=== PATIENT | female | born 1940 | race Caucasian/White ===

== ENCOUNTER → 2017-12-17 11:33 | Outpatient (CLI) | payer OTHER, SELFPAY ==
--- NOTE | 2017-12-17 | DI.MRI.S_ITS ---
PROCEDURE: MR KNEE LT WO CON INDICATIONS: PRIMARY OSTEOARTHRITIS OF LEFT KNEE TECHNIQUE: Noncontrast sagittal PD fast spin echo and T2 fast spin echo with fat saturation, sagittal 3-D FLASH with fat saturation; coronal T1 spin echo and PD fast spin echo with fat saturation, and axial PD fast spin echo with fat saturation through the knee. COMPARISON: [facility] Vernon Orland, CR, XR KNEE ARTHRITIC SERIES BI, 08/31/2017, 11:08. FINDINGS: Image quality: Excellent. Menisci: Circumferential macerated medial meniscal tear (versus postsurgical appearance) with very little meniscal substance visualized, in particular the anterior and posterior horn. There is complete extrusion of the body. Lateral meniscal body tear is seen extending to the free margin and undersurface image 18 series 11. Cruciate ligaments: The anterior cruciate ligament is not well visualized. Suboptimal evaluation due to advanced arthritic changes and posterior cruciate ligament appears intact. There are numerous presumed periligamentous ganglion cyst adjacent to the posterior cruciate ligament, and posterior joint capsule. Medial structures: The medial collateral ligament appears intact although marked medial bowing due to meniscal pathology described above. The posterior oblique ligament, semimembranosus tendon insertions, oblique popliteal ligament, and meniscocapsular junction appear intact. Visualized portions of the pes anserinus tendons appear normal. No abnormal bursal fluid. Lateral structures: The lateral collateral ligament, long and short heads of the biceps femoris tendon appear intact. The popliteus tendon appears normal; the popliteofibular ligament appears intact. The posterosuperior and anteroinferior popliteomeniscal fascicles appear intact. The arcuate and fabellofibular ligaments appear intact, on either side of the lateral inferior geniculate artery. Iliotibial band appears normal. Anterior structures: The quadriceps and patellar tendons appear intact. Prepatellar and superficial infrapatellar subcutaneous edema Patellar alignment is normal. No femoral trochlear dysplasia or ventral trochlear prominence. No edema in the infrapatellar fat pad. Bones and cartilage: No bone marrow contusions or fractures. There is advanced osteoarthritis with full thickness femoral and tibial articular cartilage loss within the medial compartment. Within the lateral compartment there is diffuse partial-thickness femoral and tibial articular cartilage loss. Within the patellofemoral compartment, there is is partial-thickness loss and surface fraying of the patellar and femoral trochlear cartilage Joint space: Small joint effusion. Trace Sandhu's cyst noted IMPRESSION: Circumferential macerated ill-defined tear of the medial meniscus with complete extrusion of the body(versus postoperative change, please correlate with any surgical history). Complex tear of the lateral meniscus involving the body Rupture of the anterior cruciate ligament. This finding is technically age-indeterminate. Please correlate with clinical exam findings as this is not well seen due to advanced arthritic change. Small joint effusion. Trace Sandhu's cyst. Numerous presumed ganglion cysts adjacent to the posterior joint capsule, the origins of the medial and lateral gastrocnemius and PCL. Advanced osteoarthritis with full-thickness articular cartilage loss within the medial compartment. Dictated by: Florentin Osorio M.D. on 12/17/2017 at 13:49 Approved by: Florentin Osorio M.D. on 12/17/2017 at 14:03
== END ==
PROVIDERS: PCP Nurse Practitioner Primary Care; Visit Provider Orthopaedic Surgery
DX: M17.12 Unilateral primary osteoarthritis, left knee (principal); S83.272A Complex tear of lateral meniscus, current injury, left knee, initial encounter; S83.242A Other tear of medial meniscus, current injury, left knee, initial encounter; S83.512A Sprain of anterior cruciate ligament of left knee, initial encounter; M25.462 Effusion, left knee
CPT/HCPCS: 73721

== ENCOUNTER 2018-02-02 06:00 | Inpatient (IN) | payer MEDICARE, OTHER, SELFPAY ==
[2018-01-20 09:38] VITALS: BMI 30.9
[2018-02-02] VITALS (13 sets, daily range): BP systolic 93–136; BP diastolic 54–78; PULSE 58–81; RESP 14–20; TEMP 36.1–37; O2SAT 91–98; BMI 30.9
[2018-02-02] MEDS: LACTATED RINGERS 1,000 ML 42 ML IV ×2 (07:00→10:30)
[2018-02-02] MEDS: VANCOMYCIN 1,000 MG/200 ML FROZ.PIGGY 200 MG IV (07:01)
[2018-02-02] MEDS: ACETAMINOPHEN 325 MG TABLET 975 MG PO ×3 (07:01→20:46)
[2018-02-02] MEDS: CELECOXIB 200 MG CAPSULE PO (07:01)
[2018-02-02] MEDS: PREGABALIN 75 MG CAPSULE PO (07:01)
--- NOTE | 2018-02-02 08:00 | DI.RAD.S_ITS ---
PROCEDURE: XR KNEE LT 1TO2V INDICATIONS: post op TECHNIQUE: 2 view(s) of the knee acquired. COMPARISON: None. FINDINGS: Bones: Patient is status post knee joint arthroplasty. Hardware components are in expected positions. Visualized bony structures are intact. Soft tissues: Overlying postoperative changes are noted. IMPRESSION: Normal alignment after left total knee arthroplasty with a surgical drain overlying the operative bed. Dictated by: Boogie Ledbetter M.D. on 02/02/2018 at 11:17 Approved by: Boogie Ledbetter M.D. on 02/02/2018 at 11:18
--- NOTE | 2018-02-02 08:00 | PM.PREOP ---
Pre-operative Note Interval Note Pre-op Check: Yes History & Physical Reviewed by Physician and Yes Exam Performed Changes: No
--- NOTE | 2018-02-02 08:01 | PM.OP.1 ---
Operative Date/Time/Diagnoses Date of procedure: 02/02/18 Time of procedure: 10:01 Pre-op diagnosis: left knee OA Post-op diagnosis: same Procedure & Clinicians Procedure: left total knee arthroplasty Same procedure as scheduled: Yes Indications: The patient has had progressively worsening left knee pain with radiographic changes consistent with arthritis. Non-operative management has failed and the patient has requested total knee replacement. The risks, benefits and alternatives to surgery were discussed with the patient prior to proceeding. Risks discussed included, but were not limited to, failure to relieve pain, stiffness, infection, nerve damage, deep venous thrombosis, pulmonary embolism, stroke, coma, heart attack, permanent paralysis and , as well as the potential need for eventual revision of the prosthetic. Surgeon: Jill Sheikh Farm Equipment Mechanic Apprentice: Chelo Tatum Anesthesia Type: Spinal Operative Notes Findings: Severe left knee osteoarthritis Closure Type: primary Specimen(s): none sent Implants & Drains: Journey BCS 2 6 femur, 5 tibia, poly, patella Applied: implant(s) Estimated Blood Loss (mL): 250 Blood products transfused: none Tourniquet time (min): 110 Procedure in detail: The patient was seen in the pre-operative area, where the patient identified the left knee as the operative site and this was marked with my initials. The patient received pre-operative antibiotics, and was taken to the operating room and placed on the operative table in the supine position. After satisfactory anesthesia, a time study technologist out was performed. The left leg was encircled with a tourniquet about the proximal thigh, and the leg was prepared from the toes to the tourniquet with ChloroPrep in the usual fashion and draped through sterile drapes. The leg was elevated and exsanguinated with Eschmark bandage and the tourniquet inflated to [250] mmHg pressure. The knee was approached through an approximately 18 cm incision centered over the patella and carried into the knee through a medial parapatellar arthrotomy. A portion of the medial and lateral meniscus was resected. Soft tissue was carefully mobilized around the patella the patella was measured with a caliper. Bone was resected from the patella and the patellar height was reconstituted with up an appropriate sized patellar component. A cover was then placed on the patella. A small amount of additional medial and lateral meniscus was resected. The visionare guide fit well to the distal femur. It looked like an appropriate distal femoral cut and the cut was made without difficulty. The rotation was assessed and the appropriate size femoral guide was placed on the distal femur and finishing cuts were made. There was no evidence of notching. The anterior, posterior and chamfer cuts were then made. The posterior osteophytes and soft tissues were then removed. The posterior capsule was injected with part of a mixture of 60 ml 0.25% Marcaine mixed with 20 ml Exparel for post operative pain control. The remainder of this mixture was injected into the capsule and subcutaneous tissues during cement curing. The tibia was prepared and the visionaire guide fit well to the distal tibia. The rotation was assessed. The patient was placed in extension residual medial and lateral meniscus as well as any residual bone was carefully resected. No additional tibia was resected. Hemostasis was achieved especially posteriorly. Additional local was injected into the posterior capsule. The extension gap was assessed and additional releases for gap balancing were performed as necessary. It was checked with the gap correctional nurse. The femoral component was trial was placed and the notch was finished. Trial tibial and femoral components were then placed and the knee placed through a range of motion. Range of motion was [0-125], with good stability throughout the range. The trials were then removed, and the tibia was finished. The bone was prepared with pulsatile lavage, and dried with a sponge. Cement was applied and the final prosthetics placed. Excess cement was removed during and after cement curing. A brief Betadine soak was performed. After confirming there was no extruded cement posteriorly, the final tibial insert was placed. The knee was copiously irrigated and the tourniquet deflated. Hemostasis was obtained with the Bovie. A drain was placed and brought out superolaterally. The capsule was closed with interrupted # 1 poly suture. The subcutaneous layer was closed with barbed sutures, and the skin with a running 3-0 V-Lock suture and Surgical glue. An Aquacel Ag dressing was applied and the patient was taken to recovery having tolerated the procedure well. Complications: none Condition: stable Disposition: Acute Care Plan for aftercare: The patient will be maintained on a standard total knee replacement protocol with weight bearing as tolerated. The patient will receive aspirin and sequential compression devices for DVT prophylaxis. The patient will be discharged home when safe for the home environment.
[2018-02-02] MEDS: CEFAZOLIN 2 GM/100 ML FROZ.PIGGY IV ×2 (08:20→16:58)
--- NOTE | 2018-02-02 08:35 | SUR.OPER ---
Supine on padded OR bed. Pillow under head, arms secured on padded armboards <90 degree abduction. Safety belt across torso. Non-operative leg secured with tape over blanket over lower leg. Operative leg secured in DeMayo/Fredy positioner. Foam padded brace at thigh of operative leg.
[2018-02-02] MEDS: BUPIVACAINE LIPOSOME 266 MG/20 ML VIAL INJ (08:45)
[2018-02-02] MEDS: BUPIVACAINE 0.25% W/ EPI VIAL 60 ML INJ (08:47)
[2018-02-02] MEDS: POVIDONE-IODINE 15 ML, SODIUM CHLORIDE 0.9% 250 ML TOP (08:51)
--- NOTE | 2018-02-02 13:53 | CM.DANOTE ---
Discharge Planning/Care Management DCP: assessment: initiated: Case received this morning and went to room to check in with pt for introduction of self and role. Room empty....pt was still in surgery. Documentation review reveals that pt is a 77 year old female who admitted early this morning for a planned TKA. Surgeon: Dr. Marie Sheikh Payer: [facility] (1) and Medicare A only (2). PCP: Joslyn Falcon. Pt lives with her in [place] and her pre-op plan is identified as home with spouse support. P: DCP team will check in with pt tomorrow to continue to assessment process and assist with any d/c needs that may arise. Dr. Sheikh says that pt will d/c home when stable for the home environment. CM Discharge Assessment Start: 02/02/18 13:28 Freq: Status: Active Protocol: Document 02/02/18 13:29 ITV (Rec: 02/02/18 13:52 [id number]) Discharge Planning Assessment Advance Directives? Yes Advance Directives on File No History Provided By Medical Record Prior Living Arrangements House Household Members spouse Review Status In Process Next Review Type Continued Stay Review Pre-Anesthesia Assessment Start: 01/20/18 09:38 Freq: Status: Active Protocol: Document 01/20/18 09:38 CAB (Rec: 01/20/18 10:40 CAB [id number]) Pre-Anesthesia Assessment Patient Also Known As Garcia (AKA) Patient Information Reviewed Via Phone Assessment Assessment Completed With Patient Consent for Planned Operative Procedure( Yes s) Verified H&P Completed Within 30 Days Yes Lab Results BMP/CMP CBC Urinalysis Other Comment A1c. Labs/EKG [facility] to [facility] records to be scanned to chart Primary Care Provider Joslyn Falcon Seen Specialist in Last 12 Months Yes Specialist Seen Fresh Work Inspector Opthamologist/Senior Analysis Specialist Orthopedist Primary Language Latvian Horticultural Specialty Grower Required No Height 162.56 cm Weight 81.647 kg Body Mass Index (BMI) 30.9 Hearing Ability Normal Visual Assist Glasses Dentition Type Teeth, Natural Present Barriers to Learning None Hx Anesthesia Reactions No Hx Family Anesthesia Reaction No Hx Malignant Hyperthermia No Hx Blood Transfusions No Anesthesia Review Requested No Algebra Tutor No alcohol intake current alcohol intake frequency 0-2 drinks per day Smoking Status Former smoker how long ago did patient quit smoking Quit in college, early 60's Substance Use Type other Comment CBD oil Pain Present Pain Reported Musculoskeletal Symptoms Abnormal Gait Difficulty Walking Joint Pain Muscle Cramps History of Falling (Recent or History of No ) Patient is completely paralyzed or No completely immobile Mental Status Oriented to own ability Comment Walking poles with extended walks Is patient on oxygen? No Does patient have MORGAN/SOB No Hx Sleep Apnea No Currently Taking a Beta Joanna No Can You Climb a Flight of Stairs Without No SOB Hx Chest Pain No Hx SOB Yes: With prolonged extertion Hx Syncope or Dizziness Yes: One episode approx 1-2 months ago, resolved Anti-Coagulant Therapy No Has a Game Agent No Cardiac Testing No Hx Pacemaker/ICD No Pacemaker Rep Required? No Cardiac Clearance Received Not Applicable Diet Type At Home Regular dysphagia No Bladder Pattern Nocturia Urinary Catheter Present No Hx Urinary Self Catheterization No Diabetes No HgbA1C 5.4 Date 01/11/18 Patient No Lactating No Hx Drug Resistant Organism No Presence of External or Internal Medical No Devices Have you traveled outside the [facility] in the last 30 days? Marital Status Lives With spouse Prior Living Arrangements House Number of Floors (Floors) Two Floors Number of Stairs To Enter/Railing? 3 stairs, no railing Support System Child/Children Spouse Does the Patient Have Assistance After Yes Surgery Patient Discharge Plan Description Return Home Comment Pt has not been advised on length of stay per surgeon's office Feels Safe in Current Environment Yes Been Physically Hurt or Threatened By a No Person in Current Environment Do you have thoughts of harming yourself None or others? Are you currently considering suicide? No Do you have a plan to hurt yourself or No Plan others? Do You Have Any Spiritual Beliefs That No May Affect Your HC Choices? Do You Have Any Cultural Practices That No May Affect Your HC Choices? Spiritual Referral None Who Can We Speak to About Patient's Care Family, friends Identifying Code for Release of Patient Declines to issue Information Health Care Proxy/Next of Kin Julianna () Health Care Proxy Emergency Contact Name Julianna () Emergency Contact Advance Directives? Yes Advance Directives on File No Requested Patient Bring Advanced Yes Directives DOS Power of Garbage Depot Worker Yes Power of Garbage Depot Worker Name Julianna () Power of Garbage Depot Worker PAC Instructions Do not shave/clip surgical site Durable medical equipment Medications to take/avoid Nasal antibiotic No ETOH/petroleum product on skin DOS NPO Post-op transportation Pre-surgical wash Sturdy shoes/comfortable clothes Do not bring valuables and remove jewelry PAC Comment Right breast cancer - no BP, IVs
--- NOTE | 2018-02-02 14:30 | PT.IPTN ---
Addendum entered and electronically signed by Radha Hilton, PT 02/02/18 15:48: I certify I directly supervised and guided this session. R Neli Hilton DPT Original Note: Current Diagnoses Unilateral primary osteoarthritis, left knee (02/02/18) Surgery Performed Operation Date: 02/02/18 07:45 Actual Procedures p Total Knee Arthroplasty(Left) - Jill Sheikh MD Physical Therapy Treatment Note M2 PT-IP Current Condition Start: 02/02/18 15:12 Freq: NEEDED Status: Active Protocol: Document 02/02/18 14:30 (Rec: 02/02/18 15:42 [id number]) Physical Therapy Current Condition Current Condition Evaluation Date 02/02/18 Treatment Diagnosis L TKA; difficulty walking Onset Date 02/02/18 Weight Bearing Status Weight Bearing Status Weight Bear as Tolerated M3 PT-IP Subjective Start: 02/02/18 15:12 Freq: NEEDED Status: Active Protocol: Document 02/02/18 14:30 (Rec: 02/02/18 15:42 [id number]) Subjective Physical Therapy Visit Type Type Initial Evaluation Visit Start Time 14:30 Visit Stop Time 15:12 Total Visit Minutes 42 Number of STOPPER MAKER Visits 0 Physical Therapy Visit Comments Patient Comments Pt agreeable to mobilize with PT. Her is present for session. Patient Goals Plans to go home at d/c with Therapy Pain Assessment Pain When Pain Assessed During Mobility Pain Present Pain Present Pain Reported Location Right Knee Scale Used 0/10 at rest. 1/10 with PROM Pain Management Techniques Apply Cold Elevation Modification of Treatment Re-positioning Timing of Activity with Medications M4 PT-IP Mobility and Gait Start: 02/02/18 15:12 Freq: NEEDED Status: Active Protocol: Document 02/02/18 14:30 (Rec: 02/02/18 15:42 [id number]) PT-Bed Mobility Assessment Supine to Sit Supine to Sit Standby Assistance Sit to Supine Sit to Supine Standby Assistance Scooting Scooting to Edge of Bed Standby Assistance PT-Transfer Assessment Sit to and From Stand Sit to and from Stand Minimal Assistance 1 Person Assistance Use of Upper Extremities Equipment Transfer Assistive Device Gait Belt Front Wheeled Walker Orthotic/Prosthetic Devices or Brace: No Transfers Transfer Destination Chair Transfer Technique Stand Step Pivot Transfer Ability Level of Assist Minimal Assistance 1 Person Assistance Comments Mobility Comments Resting/supine HOB elevated BP 99/50 HR 70. Pt denies dizziness at rest, agreeable to mobilize. Supine > sit is SBA, pt using BUE heavily. Pt reports dizziness upon sitting upright. Pt instructed in deep breathing, rests 2 mins. in seated. Seated BP 107/60 HR 86. Pt instructed to perform transitional positions more slowly. She states dizziness is subsided and agrees to continue mobilizing. Sit <> stand is min AX1 for steadying and to assist pt upright and min cues. Pt marches in place 2 mins. with CGA and pt relying heavily on BUE support . Pt with difficulty controlling LLE despite max cues to activate quad and (+) for L knee buckling. Post marching, standing BP 108/51 HR 90. Step-pivot transfer minAx1 for steadying pt; pt requiring max cues for fww management and LLE quads activation. Pt denies dizziness post mobilization. PT-Balance Assessment Sitting Balance and Reactions Static Sitting Balance Ability Good Dynamic Sitting Balance Ability Good Standing Balance and Reactions Static Standing Balance Ability Fair Dynamic Standing Balance Ability Poor Device Used fww M5 PT-IP Objective Assessments Start: 02/02/18 15:12 Freq: NEEDED Status: Active Protocol: Document 02/02/18 14:30 (Rec: 02/02/18 15:42 [id number]) Orientation Orientation/Cognition Level of Alertness Alert Orientation Name Age Birthday Month Date Year Day of Week Place Situation Language Function Ability No Deficits Noted Safety Awareness Decreased Safety Awareness Gross Range of Motion Lower Extremity ROM Assessment Left Impaired Impairments L knee flexion 95deg. L knee extension 0deg. Strength Lower Extremity Strength Assessment Bilaterally Impaired Hip L hip flexion 4/5 Knee L knee extension 3/5 Ankle L ankle 5/5 Comments Strength Comments R LE grossly 4/5 Sensation Assessment Sensation Light Touch Intact Proprioception (Position) Intact Sensation Description Numbness Comments Sensation Comments Pt light touch sensatoin is intact distal to thigh. Proprioception of large toe is intact bilaterally. Pt still reports her butt feels numb M6 PT-IP Treatment Start: 02/02/18 15:12 Freq: NEEDED Status: Active Protocol: Document 02/02/18 14:30 (Rec: 02/02/18 15:42 [id number]) Physical Therapy Treatment Exercises Exercises Ankle Pumps Quad Sets Heel Slides Straight Leg Raises Short Arc Quads Passive Knee Extension Hang Seated Knee Flexion/Extension Education Education Provided Precautions Weight Bearing Status Post-Op Packet Safety M7 PT-IP Assessment and Plan Start: 02/02/18 15:12 Freq: NEEDED Status: Active Protocol: Document 02/02/18 14:30 (Rec: 02/02/18 15:42 [id number]) PT Summary Assessment and Plan Potential Rehabilitation Potential Good Status of Condition at Evaluation Stable Summary Impairments Pain ROM Strength Balance Bed Mobility Transfers Gait Activity Tolerance Assessment Summary Pt s/p L TKA with difficulty walking. She was able to perform a [id number] with minAx1 and max cues. She was innapropriate to attempt ambulation as she was still having difficulty controlling her L LE despite cues to activate quadriceps. Pt left sitting up in recliner with nursing and call light in reach. Patient needs to progress ambulation and complete stair training prior to d/c then, pending medical stability, we anticipate she will be safe to discharge home with assist of her and f/u OP PT. Goals Bed Mobility Goal Independent Transfer Goal Standby Assistance Front Wheeled Walker Gait Goal Standby Assistance Front Wheel Walker Gait Distance 150 Other Goals Pt will complete up/down 3 steps using spc and Neena as needed to safely access home. Days to Meet Goals 2 Frequency of Treatment Frequency Of Treatment Twice a Day Treatment Plan Physical Therapy Treatment Plan Bed Mobility Training Transfer Training Gait Training Therapeutic Exercise Balance Retraining Post Op Education Discharge Planning Hot or Cold Pack Neuromuscular Re-ed Coordination Retraining Manual Therapy Other Recommendations and Next Treatment Progress ambulation as Focus appropriate (fww) and begin stair climbing. Recommendations To Nursing Amount of Assist Needed 1 Person Assist Discharge Recommendations PT Discharge Recommendations Home with Assistance Outpatient PT
[2018-02-02] MEDS: LACTATED RINGERS 1,000 ML 125 ML IV (15:06)
[2018-02-02] MEDS: DOCUSATE 100 MG CAPSULE PO (20:48)
[2018-02-02] MEDS: ASPIRIN EC 81 MG TABLET PO (20:48)
--- NOTE | 2018-02-02 23:37 | PC.NURSE ---
Shift note: Maryse has been awake & Ox3 entire evening. VS stable, last BP low at 99/56. Denies dizziness. Able to ambulate to BR for 2nd void tonight. Earlier said her hips/thighs were still numb, felt nurse hand on legs but said I can't feel if I need to go. Has voided twice since that time and reports numbness has resolved to hips/thighs. Rates LLE knee pain 2 or 3, medicated with scheduled tylenol, states no need for stronger medication tonight. L Knee drsg remains CDI, hemovac active with sero-sang drainage. Can lift leg and resist nurse hand, good strength & cms. 1 assist transfer to [facility] and then 2nd time all the way into , gait steady with good use of fww. LR infusing at 125 ml/hour, IV pump beeping occasionally, flushes fine, appears positional. Tolerating general diet, denies nausea. Dr Sheikh in to see patient earlier this evening, aware that patient has voided. Patient is calling nurse appropriately, fall precautions in place. Full report now given to Maricruz PENN RN.
[2018-02-03] VITALS: BP 100/51; PULSE 61; RESP 16; TEMP 36.5; O2SAT 96
[2018-02-03] MEDS: CEFAZOLIN 2 GM/100 ML FROZ.PIGGY IV (00:37)
[2018-02-03] MEDS: LACTATED RINGERS 1,000 ML 125 ML IV (01:52)
[2018-02-03 06:10] LABS: Hematocrit 36.2 % (36-46); Hemoglobin 12.2 g/dL (12.0-16.0)
[2018-02-03 06:25] VITALS: BP 159/63; PULSE 61; RESP 16; TEMP 36.2; O2SAT 100
[2018-02-03] MEDS: LEVOTHYROXINE 88 MCG TABLET PO (06:31)
[2018-02-03] MEDS: ACETAMINOPHEN 325 MG TABLET 975 MG PO (08:38)
[2018-02-03] MEDS: CHOLECALCIFEROL (VITAMIN D3) 1,000 UNIT TABLET 6000 UNIT PO (08:39)
[2018-02-03] MEDS: ASPIRIN EC 81 MG TABLET PO (08:40)
[2018-02-03] MEDS: DOCUSATE 100 MG CAPSULE PO (08:40)
[2018-02-03 08:43] VITALS: BP 126/77; PULSE 79; RESP 16
--- NOTE | 2018-02-03 09:45 | PM.DS.1 ---
History of Present Illness Date Patient Seen: 02/03/18 Time Patient Seen: 09:45 Chief complaint: [id number] Narrative: Patient's pain is mild. No fever chills. No nausea vomiting. She was up yesterday with physical therapy able to walk to the restroom. Patient states she wants to walk more however physical therapy told her to rest yesterday. Family is home to assist her. Discharge Providers Date of admission: 02/02/18 06:00 Primary care physician: FRANK Aguilera Consults: 02/02/18 06:39 Consult to Anesthesiology Routine Comment: Consulting Provider: Anesthesiologist Reason for consultation: Regional block for post operative pain control 02/02/18 12:22 Consult to Discharge Planning Routine Comment: Consult to Physical Therapy Evaluate & Treat Comment: Physician Instructions: postop TKA protocol Consult to Respiratory Therapy Evaluate & Treat Comment: Physician Instructions: Evaluate and treat Discharge provider: Bunny Donnelly PA-C Discharge Date: 02/03/18 Summary Discharge Diagnosis: Status post left total knee arthroplasty Hospital Course: The patient has had progressively worsening left knee pain with radiographic changes consistent with arthritis. Non-operative management has failed and the patient has requested total knee replacement. The risks, benefits and alternatives to surgery were discussed with the patient prior to proceeding. Risks discussed included, but were not limited to, failure to relieve pain, stiffness, infection, nerve damage, deep venous thrombosis, pulmonary embolism, stroke, coma, heart attack, permanent paralysis and , as well as the potential need for eventual revision of the prosthetic. Surgeon: Jill Sheikh Chairman & Chief Executive Officer: Chelo Tatum Anesthesia Type: Spinal Estimated blood loss 250 cc Patient back in her room recovering well status post left total knee arthroplasty. Status at Discharge Functional status at discharge: uses cane/walker Overall status at discharge: patient is progressing back to baseline Time Spent with Patient Less than 30 minutes Exam Vital Signs (past 8 hours): - 02/03/18 06:25 02/03/18 08:43 Temperature 97.2 F L Pulse Rate 61 79 Respiratory Rate 16 16 Blood Pressure 159/63 H 126/77 Pulse Oximetry 100 Oxygen Delivery Method Room Air Oxygen Flow Rate 0 Narrative Exam Narrative: Pleasant 77-year-old female resting comfortably in bed in no apparent distress. Left knee dressing is clean, dry and intact. Neurovascular status is intact to the distal left lower extremity. Objective Labs Result Diagrams: 02/03/18 05:55 Labs: Laboratory Results - last 24 hr 02/03/18 05:55 Hgb 12.2 Hct 36.2 Discharge Plan Discharge Plan Patient Disposition: Home Discharge comment: DC home today Discharge Med Rec/Prescriptions Prescriptions: Continue meloxicam 15 mg Tablet 15 mg PO DAILY RF: 0 levothyroxine 88 mcg Capsule 88 mcg PO DAILY RF: 0 s-adenosylmethionine [Davey-E] 400 mg Tablet 400 mg PO DAILY RF: 0 cholecalciferol (vitamin D3) [Vitamin D3] 2,000 unit Tablet 6,000 unit PO DAILY RF: 0 Follow up/Referrals: Joslyn Falcon, FRANK [Primary Care Provider] - None Jill Sheikh MD [Physician] - 1 Week Provider Discharge Instructions Diet: Diet as Tolerated Activity: Weightbearing as tolerated Cold/Heat Therapy: Apply ice to the affected knee as needed Skin/Wound/Dressing Care Report to your healthcare provider any signs of infection, such as:: chills, fever, night sweats, increased pain and unusual drainage Dressing: Keep dressing clean and dry Discharge Data Primary Care Provider: Joslyn Falcon Attending Provider: Jill Sheikh Admit Date/Time: 02/02/18 06:00 Quality VTE Deep Vein Thrombosis/Pulmonary Embolism Present on Admission: No
--- NOTE | 2018-02-03 10:19 | CM.DPC ---
DCP Cont: Met with patient this morning to discuss plan. and son in room, pleasant. Patient lives in [place], stated that she already has physical therapy set up when able. She did not feel that she needed any other resources at this time. Physical therapy working with patient as well. Patient is to be discharged home today. P: Patient is to be discharged home today with outpatient therapy when able. Yasmin Cain RN/Share[employer] Specialist
--- NOTE | 2018-02-03 10:22 | PT.IPTN ---
Addendum entered and electronically signed by Jesica Scott PT 02/03/18 13:37: This is to certify that I have reviewed this documentation and POC Original Note: Current Diagnoses Unilateral primary osteoarthritis, left knee (02/02/18) Surgery Performed Operation Date: 02/02/18 07:45 Actual Procedures p Total Knee Arthroplasty(Left) - Jill Sheikh MD Physical Therapy Treatment Note M2 PT-IP Current Condition Start: 02/02/18 15:12 Freq: NEEDED Status: Discharge Protocol: Document 02/02/18 14:30 (Rec: 02/02/18 15:42 [id number]) Physical Therapy Current Condition Current Condition Evaluation Date 02/02/18 Treatment Diagnosis L TKA; difficulty walking Onset Date 02/02/18 Weight Bearing Status Weight Bearing Status Weight Bear as Tolerated M3 PT-IP Subjective Start: 02/02/18 15:12 Freq: NEEDED Status: Discharge Protocol: Document 02/03/18 10:22 (Rec: 02/03/18 12:22 [email or web address]) Subjective Physical Therapy Visit Type Type Treatment Note Visit Start Time 10:22 Visit Stop Time 10:58 Total Visit Minutes 36 Number of SHEET ROCK NAILER Visits 0 Physical Therapy Visit Comments Patient Comments Pt agreeable to mobilize with PT. and son are present for visit and agreeable to caregiver training. Patient Goals Planning to d/c home before lunch Therapy Pain Assessment Pain When Pain Assessed During Mobility Pain Present Pain Present Pain Reported Location Right Knee Scale Used 3/10 with AAROME. 0/10 resting. 1-2/10 during ambulation Pain Management Techniques Apply Cold Modification of Treatment Re-positioning Timing of Activity with Medications M4 PT-IP Mobility and Gait Start: 02/02/18 15:12 Freq: NEEDED Status: Discharge Protocol: Document 02/03/18 10:22 (Rec: 02/03/18 12:22 [email or web address]) PT-Bed Mobility Assessment Supine to Sit Supine to Sit Independent Scooting Scooting to Edge of Bed Independent PT-Transfer Assessment Sit to and From Stand Sit to and from Stand Standby Assistance Minimal Assistance Use of Upper Extremities Equipment Transfer Assistive Device Gait Belt Front Wheeled Walker Orthotic/Prosthetic Devices or Brace: No Transfers Transfer Destination Chair Wheelchair Transfer Technique Ambulates between surfaces Comments Mobility Comments Resting/supine BP 120/66 HR 72 . Pt denies dizziness or GIORDANO. Supine to sit is performed independently. Sit > stand on first attempt is min Ax1 assisting pt upright. After ambulation (see below) additional 3 sit <> stands are SBA. Pt needing no cues for fww management or bed mobility . Gait Assessment Gait Gait Assistance Required: Standby Assistance Distance (Feet) 150 Able to Maintain Weight Bearing Status Yes During Gait Assistive Devices Assistive Device Gait Belt Front Wheeled Walker Orthotic/Prosthetic Devices or Brace: Yes Gait Deviations General Gait Pattern Antalgic Decreased Stride Length Flexed Trunk Factors Limiting Gait Function Factors Limiting Gait Function Decreased Activity Tolerance Decreased Strength Limited Range of Motion Pain Poor Balance Comments Gait Comments Pt ambulates 150 + 150 to/from stairs with fww and SBA. Gait notable for antalgic limp over L knee which decreases with min cues for quad activation. She is able to correct forward flexed posture with min cues. Stair Climbing Assessment Evaluation Level of Assist On Stairs Contact Guard Assistance Devices Stair Climbing Assistive Devices Straight Cane Front Wheel Walker Technique/Endurance Stair Climbing Direction Ascend and Descend Number of Steps Climbed 3 Query Text: Stair Climbing Set # Repetitions (reps) 1 Comments Stair Climbing Comments Pt up/down 3 steps with L rail and spc CGA min cues for quad activation and spc use. Pt up/down 1 platform step with fww and CGA. 1st attempt with PT demonstration, 2nd and 3rd attempts with Caregiver/spouse providing CGA and PT standby for safety. Pt and caregiver able to complete safely with min cues. Post session/seated BP 124/ 73 HR 82 and pt mary dizziness, nausea, headache throughout session. M5 PT-IP Objective Assessments Start: 02/02/18 15:12 Freq: NEEDED Status: Discharge Protocol: Document 02/02/18 14:30 (Rec: 02/02/18 15:42 [id number]) Orientation Orientation/Cognition Level of Alertness Alert Orientation Name Age Birthday Month Date Year Day of Week Place Situation Language Function Ability No Deficits Noted Safety Awareness Decreased Safety Awareness Gross Range of Motion Lower Extremity ROM Assessment Left Impaired Impairments L knee flexion 95deg. L knee extension 0deg. Strength Lower Extremity Strength Assessment Bilaterally Impaired Hip L hip flexion 4/5 Knee L knee extension 3/5 Ankle L ankle 5/5 Comments Strength Comments R LE grossly 4/5 Sensation Assessment Sensation Light Touch Intact Proprioception (Position) Intact Sensation Description Numbness Comments Sensation Comments Pt light touch sensatoin is intact distal to thigh. Proprioception of large toe is intact bilaterally. Pt still reports her butt feels numb M6 PT-IP Treatment Start: 02/02/18 15:12 Freq: NEEDED Status: Discharge Protocol: Document 02/03/18 10:22 (Rec: 02/03/18 12:22 [email or web address]) Physical Therapy Treatment Education Education Provided Precautions Weight Bearing Status Post-Op Packet Safety Other Treatments Other Treatment Performed Caregiver education included donning/doffing of gait belt, hand placement on gait belt, safeguarding during sit <> stand (particularly when pt first gets up after sleeping/ sitting for a while), safeguarding during ambulation and stair climbing. Pt and caregiver were both able to complete all the above safely with min cues and stated feeling comfortable with performance. Caregiver edcuation regarding post-op knee exercises (proper performance, frequency, reps). M7 PT-IP Assessment and Plan Start: 02/02/18 15:12 Freq: NEEDED Status: Discharge Protocol: Document 02/03/18 10:22 (Rec: 02/03/18 12:22 [email or web address]) PT Summary Assessment and Plan Potential Rehabilitation Potential Good Summary Impairments Pain ROM Strength Balance Bed Mobility Transfers Gait Activity Tolerance Progress Towards Goals Progressing Toward Goals Assessment Summary Caregiver training completed today and pt and caregiver demonstrated safety with all concepts provided today requiring min cues. The both stated feeling comfortable with concepts. Pt ambulated 150 + 150 ft fww SBA, up/down 3 steps L rail and spc CGA, and up/down 3 platform steps fww CGA. Recommend d/c to home with assist and OP PT when pt medically ready. Goals Bed Mobility Goal Independent Transfer Goal Independent Front Wheeled Walker Gait Goal Independent Front Wheel Walker Gait Distance 300 Other Goals up/down 3 platform steps modified indep with fww Days to Meet Goals 2 Frequency of Treatment Frequency Of Treatment Twice a Day Treatment Plan Physical Therapy Treatment Plan Bed Mobility Training Transfer Training Gait Training Therapeutic Exercise Balance Retraining Post Op Education Discharge Planning Hot or Cold Pack Neuromuscular Re-ed Coordination Retraining Manual Therapy Recommendations To Nursing Amount of Assist Needed 1 Person Assist Discharge Recommendations PT Discharge Recommendations Home with Assistance Outpatient PT
--- NOTE | 2018-02-03 11:54 | PC.NURSE ---
Discharge Note: Patient discharged home this shift at 1150. Hemovac removed, iv removed, discharge instructions reviewed, questions answered to patient's satisfaction. Patient home with and soon via private vehicle. Patient taken out of hospital by [facility] via wheelchair.
== END 2018-02-03 11:50 | disposition home or self-care (01) | DRG 470 ==
PROVIDERS: Admitting Provider Orthopaedic Surgery; PCP Nurse Practitioner Primary Care; Visit Provider Orthopaedic Surgery
PROC: 0SRD0JZ Replacement of Left Knee Joint with Synthetic Substitute, Open Approach (ICD-10-PCS; CPT 27447; principal; 2018-02-02 07:45)
DX: M17.12 Unilateral primary osteoarthritis, left knee (principal); E03.9 Hypothyroidism, unspecified
CPT/HCPCS: 36415; 73560; 85014; 85018; 97161; 97530; C1776; C9290; J0171; J0690; J1100; J2250; J2274; J2405; J2704; J3010; J3370

== ENCOUNTER → 2018-06-17 11:40 | Outpatient (CLI) | payer OTHER, SELFPAY ==
[2018-02-02 06:44] VITALS: BMI 30.9
--- NOTE | 2018-06-17 | DI.MRI.S_ITS ---
PROCEDURE: MR KNEE RT WO CON INDICATIONS: Pain in right knee TECHNIQUE: Noncontrast sagittal PD fast spin echo and T2 fast spin echo with fat saturation, sagittal 3-D FLASH with fat saturation; coronal T1 spin echo and PD fast spin echo with fat saturation, and axial PD fast spin echo with fat saturation through the knee. COMPARISON: [facility], CR, XR KNEE ARTHRITIC SERIES RT, 06/07/2018, 14:12. [facility], MR, MR KNEE LT WO CON, 12/17/2017, 12:00. FINDINGS: Image quality: Excellent. Menisci: There is peripheral displacement of medial meniscus bony medial collateral ligament. Complex tear involving body and posterior horn of medial meniscus is seen extending to both superior and inferior articulating surfaces. There is also suggestion of oblique tear involving anterior horn of lateral meniscus extending to superior articulating surface.. The meniscal root ligaments appear intact. Cruciate ligaments: Anterior cruciate ligament is not visualized, suggestive of chronic rupture of ACL. Posterior cruciate ligament is intact. Medial structures: Moderate sprain/partial thickness tear involving medial collateral ligament. The posterior oblique ligament, semimembranosus tendon insertions, oblique popliteal ligament, and meniscocapsular junction appear intact. Visualized portions of the pes anserinus tendons appear normal. No abnormal bursal fluid. Lateral structures: The lateral collateral ligament, long and short heads of the biceps femoris tendon appear intact. The popliteus tendon appears normal; the popliteofibular ligament appears intact. The posterosuperior and anteroinferior popliteomeniscal fascicles appear intact. The arcuate and fabellofibular ligaments appear intact, on either side of the lateral inferior geniculate artery. Iliotibial band appears normal. Anterior structures: The quadriceps and patellar tendons appear intact. Patellar alignment is normal. No femoral trochlear dysplasia or ventral trochlear prominence. No edema in the infrapatellar fat pad. Bones and cartilage: Severe tricompartmental osteoarthritis is seen most prominent in the medial femorotibial compartment with complete loss of articulating cartilage. Extensive subchondral cysts and sclerosis with subchondral edema. A prominent marginal osteophyte formation is also seen. Underlying small osteochondral lesions cannot be excluded. Joint space: There is moderate amount of joint fluid, no gross loose body. No Sandhu's cyst. Normal appearing synovial plicae are incidentally noted. IMPRESSION: 1. Moderate to severe tricompartment osteoarthritis most prominent in medial femorotibial compartment. Underlying small osteochondral lesions in medial and lateral femoral tibial compartments cannot be excluded. Moderate amount of joint fluid. No gross loose body. 2. Suggestion of chronic ACL rupture. PCL is intact. 3. Complex tear involving body and posterior horn of medial meniscus extending to both superior and inferior articulating surfaces. Oblique tear involving anterior horn of lateral meniscus extending to superior articulating surface. 4. Moderate MCL sprain. Dictated by: Doni Coles M.D. on 06/17/2018 at 13:25 Approved by: Doni Coles M.D. on 06/17/2018 at 13:39
== END ==
PROVIDERS: Visit Provider Orthopaedic Surgery
DX: M25.561 Pain in right knee (principal); S83.231A Complex tear of medial meniscus, current injury, right knee, initial encounter; S83.281A Other tear of lateral meniscus, current injury, right knee, initial encounter; S83.411A Sprain of medial collateral ligament of right knee, initial encounter; M17.11 Unilateral primary osteoarthritis, right knee
CPT/HCPCS: 73721

== ENCOUNTER 2018-07-28 06:37 | Inpatient (IN) | payer MEDICARE, OTHER, SELFPAY ==
[2018-02-02 06:44] VITALS: BMI 30.9
[2018-07-14 09:45] VITALS: BMI 30.9
[2018-07-28] VITALS (16 sets, daily range): BP systolic 92–140; BP diastolic 46–79; PULSE 54–86; RESP 12–20; TEMP 35.6–37.1; O2SAT 90–96; BMI 31.6
--- NOTE | 2018-07-28 06:34 | DI.RAD.S_ITS ---
PROCEDURE: XR KNEE RT 1TO2V INDICATIONS: prosthesis placement TECHNIQUE: 2 view(s) of the knee acquired. COMPARISON: [facility], CR, XR KNEE LT 1TO2V, 02/02/2018, 10:52. FINDINGS: Bones: Patient is status post knee joint arthroplasty. Hardware components are in expected positions. Visualized bony structures are intact. Soft tissues: Overlying postoperative changes are noted. Surgical drain is seen. IMPRESSION: Post right total knee arthroplasty changes with anatomic right knee alignment. Dictated by: Doni Coles M.D. on 07/28/2018 at 10:45 Approved by: Doni Coles M.D. on 07/28/2018 at 10:55
[2018-07-28] MEDS: ACETAMINOPHEN 325 MG TABLET 975 MG PO ×3 (07:16→20:08)
[2018-07-28] MEDS: PREGABALIN 75 MG CAPSULE PO (07:16)
[2018-07-28] MEDS: LACTATED RINGERS 1,000 ML 42 ML IV (07:25)
[2018-07-28] MEDS: VANCOMYCIN 1,000 MG/200 ML FROZ.PIGGY 200 MG IV (07:25)
--- NOTE | 2018-07-28 07:34 | PM.PREOP ---
Pre-operative Note Interval Note History & Physical reviewed/Exam performed by Physician: Yes Changes to H&P: No
--- NOTE | 2018-07-28 07:35 | SUR.PREOP ---
CELEBREX PO NOT GIVEN R/T PT ADVERSE REACTION TO MELOXICAM, VERBAL ORDER FROM DR CRUZ NOT TO GIVE. RECEIVED VERBAL ORDER FROM DR. CRUZ OK TO CONTINUE WITH CURRENT PLAN FOR ANCEF R/T PT ALLERGY TO PCN. COMMUNICATED THIS WITH CIRCULATING RNALEXI.
--- NOTE | 2018-07-28 07:36 | P.OP_ITS ---
Operative Date/Time/Diagnoses Date of procedure: 07/28/18 Time of procedure: 07:35 Pre-op diagnosis: right knee oa Post-op diagnosis: same Procedure & Clinicians Procedure: Right total knee arthroplasty Same procedure as scheduled: Yes Indications: The patient has had progressively worsening right knee pain with radiographic changes consistent with arthritis. Non-operative management has failed and the patient has requested total knee replacement. The risks, benefits and alternatives to surgery were discussed with the patient prior to proceeding. Risks discussed included, but were not limited to, failure to relieve pain, stiffness, infection, nerve damage, deep venous thrombosis, pulmonary embolism, stroke, coma, heart attack, permanent paralysis and , as well as the potential need for eventual revision of the prosthetic. Surgeon: Jill Sheikh Commercial Coordinator: Chelo Tatum Anesthesia Type: General and Spinal Operative Notes Closure Type: primary Specimen(s): none sent Prosthetic devices, grafts, tissues, transplants, or devices: Sheikh and Nephew Audrey BCS2 size 5 femur, size 4 tibia, +10 poly, 32 by 7-1/2 thickness patella Applied: drain(s) Estimated Blood Loss (mL): 250 Blood products transfused: none Tourniquet time (min): 88 Procedure in detail: The patient was seen in the pre-operative area, where the patient identified the right knee as the operative site and this was marked with my initials. The patient received pre-operative antibiotics, and was taken to the operating room and placed on the operative table in the supine position. After satisfactory anesthesia, a time study analyst out was performed. The right leg was encircled with a tourniquet about the proximal thigh, and the leg was prepared from the toes to the tourniquet with ChloroPrep in the usual fashion and draped through sterile drapes. The leg was elevated and exsanguinated with Eschmark bandage and the tourniquet inflated to [250] mmHg pressure. The knee was approached through an approximately 18 cm incision centered over the patella and carried into the knee through a medial parapatellar arthrotomy. Portion of the medial and lateral meniscus was resected. Soft tissue was carefully mobilized around the patella the patella was measured with a caliper. Bone was resected from the patella and the patellar height was reconstituted with up an appropriate sized patellar component. A cover was then placed on the patella. A small amount of additional medial and lateral meniscus was resected. The visionare guide fit well to the distal femur. It looked like an appropriate distal femoral cut and the cut was made without difficulty. The rotation was assessed and the appropriate size femoral guide was placed on the distal femur and finishing cuts were made. There was no evidence of notching. The anterior, posterior and chamfer cuts were then made. The posterior osteophytes and soft tissues were then removed. The posterior capsule was injected with part of a mixture of 60 ml 0.25% Marcaine mixed with 20 ml Exparel for post operative pain control. The remainder of this mixture was injected into the capsule and subcutaneous tissues during cement curing. The tibia was prepared and the visionaire guide fit well to the distal tibia. The rotation was assessed. The patient was placed in extension residual medial and lateral meniscus as well as any residual bone was carefully resected. [No] additional tibia was resected. Hemostasis was achieved especially posteriorly. Additional local was injected into the posterior capsule. The extension gap was assessed and additional releases for gap balancing were performed as necessary. It was checked with the gap analytical laboratory technician. The femoral component was trial was placed and the notch was finished. Trial tibial and femoral components were then placed and the knee placed through a range of motion. Range of motion was [0-130], with good stability throughout the range. The trials were then removed, and the tibia was finished. The bone was prepared with pulsatile lavage, and dried with a sponge. Cement was applied and the final prosthetics placed. Excess cement was removed during and after cement curing. A brief Betadine soak was performed. After confirming there was no extruded cement posteriorly, the final tibial insert was placed. The knee was copiously irrigated and the tourniquet deflated. Hemostasis was obtained with the [Bovie]. A drain was placed and brought out superolaterally. The capsule was closed with interrupted Vicryl. The subcutaneous layer was closed with barbed sutures, and the skin with a running 3-0 V-Lock suture and Surgical glue. An Aquacel Ag dressing was applied and the patient was taken to recovery having tolerated the procedure well. Complications: none Condition: stable Disposition: Acute Care Plan for aftercare: The patient will be maintained on a standard total knee replacement protocol with weight bearing as tolerated. The patient will receive aspirin and sequential compression devices for DVT prophylaxis. The patient will be discharged home when safe for the home environment.
[2018-07-28] MEDS: CEFAZOLIN 2 GM/100 ML FROZ.PIGGY IV ×3 (07:58→23:59)
--- NOTE | 2018-07-28 08:27 | SUR.OPER ---
Supine on padded OR bed. Pillow under head, arms secured on padded armboards <90 degree abduction. Safety belt across torso. Non-operative leg secured with tape over blanket over lower leg. Operative leg secured in [place]o. Foam padded brace at thigh of operative leg.
[2018-07-28] MEDS: BUPIVACAINE 0.25% W/ EPI 30 ML VIAL 60 ML INJ (08:34)
[2018-07-28] MEDS: BUPIVACAINE LIPOSOME 266 MG/20 ML VIAL INJ (08:35)
[2018-07-28] MEDS: POVIDONE-IODINE 15 ML, SODIUM CHLORIDE 0.9% 250 ML TOP (08:36)
--- NOTE | 2018-07-28 11:30 | SUR.PHASEI ---
Pt transferred to room 205 via bed with all belongings. Pt awake with no c/o pain at this time. Vital signs stable; see flowsheet documentation for details. Report given to MADAI Floyd prior to transfer. MADAI Floyd at bedside upon arrival to room 205; handoff report/assessment done. Mariel to assume care of pt at this time.
--- NOTE | 2018-07-28 11:40 | PC.NURSE ---
1130Pt arrived to rm 205 via bed from PACU. Pt is alert & oriented, [id number] on, sats 95%, Pt able to do ankle waves, move legs up. Hemovac in place to surg site, clamped now, unclamp at 1215. Spouse at bedside. Ptpleasant,denies pain.
[2018-07-28] MEDS: LACTATED RINGERS 1,000 ML 125 ML IV ×2 (11:53→20:05)
--- NOTE | 2018-07-28 14:50 | PT.IIE ---
Current Diagnoses Unilateral primary osteoarthritis, right knee (07/28/18) Surgery Performed Operation Date: 07/28/18 07:45 Actual Procedures p Total Knee Arthroplasty(Right) - Jill Sheikh MD Surgical History (Last Updated 07/14/18 @ 09:54 by Amy Taylor, RN) History of arthroplasty of left knee (Acute 02/02/18) Hx of dilation and curettage (Acute) Hx of eye surgery (Acute) Hx of tonsillectomy (Acute) Status post cataract extraction of both eyes with insertion of intraocular lens (Acute) Medical History (Last Updated 01/20/18 @ 10:27 by Amy Taylor RN) Achilles tendon injury (Acute) Anxiousness (Acute) Arthritis (Acute) Bilateral knee pain (Acute) Breast cancer (Acute ~2002) Depression (Acute) Elevated cholesterol (Acute) Heartburn (Acute) Hernia (Acute) Hypothyroidism (Acute) Itchy skin (Acute) Keratosis (Acute) RLS (restless legs syndrome) (Acute) Skin cancer (Acute ~2003) Physical Therapy Inpatient Evaluation/Re-Eval M1 PT/OT-IP Prior Functional Status Start: 07/28/18 16:54 Freq: NEEDED Status: Active Protocol: Document 07/28/18 14:50 AB (Rec: 07/28/18 17:47 AB [id number]) Medical Review Prior Functional Status Medical History Reviewed Yes Communication able to make needs known Mobility and Gait pt stated that she is independent with all mobilities and ambulation without AD indoors but uses a SPC for outdoor mobility; uses 2 walking pole for long distance outdoor mobility Social History Household Members spouse Living Arrangements House Number of Floors (Floors) One Floor Number of Stairs To Enter/Railing? 3 platform steps to get into the house Home Environment High Toilet Walk in Shower Home Equipment Front Wheel Walker Four Wheel Walker Straight Cane Shower Seat without Backrest Hand Held Shower Grab Bars Near Toilet Employment Status Retired M2 PT-IP Current Condition Start: 07/28/18 16:54 Freq: NEEDED Status: Active Protocol: Document 07/28/18 14:50 AB (Rec: 07/28/18 17:47 AB [id number]) Physical Therapy Current Condition Current Condition Evaluation Date 07/28/18 Treatment Diagnosis s/p R TKA; difficulty in walking Onset Date 07/28/18 Weight Bearing Status Weight Bearing Status Weight Bear as Tolerated M3 PT-IP Subjective Start: 07/28/18 16:54 Freq: NEEDED Status: Active Protocol: Document 07/28/18 14:50 AB (Rec: 07/28/18 17:47 AB [id number]) Subjective Physical Therapy Visit Type Type Initial Evaluation Visit Start Time 14:50 Visit Stop Time 15:36 Total Visit Minutes 46 Number of MAGISTRATE JUDGE Visits 0 Physical Therapy Visit Comments Patient Comments pt agreeable to do PT Therapy Pain Assessment Pain When Pain Assessed At Rest Pain Present Pain Present Pain Reported Location Right Knee Intensity 1 Scale Used Numeric (1 - 10) Pain Management Techniques Apply Cold Re-positioning Timing of Activity with Medications M4 PT-IP Mobility and Gait Start: 07/28/18 16:54 Freq: NEEDED Status: Active Protocol: Document 07/28/18 14:50 AB (Rec: 07/28/18 17:47 AB [id number]) PT-Bed Mobility Assessment Rolling Level of Assist Standby Assistance Supine to Sit Supine to Sit Standby Assistance PT-Transfer Assessment Sit to and From Stand Sit to and from Stand Contact Guard Assistance 1 Person Assistance Use of Upper Extremities Equipment Transfer Assistive Device Gait Belt Front Wheeled Walker Orthotic/Prosthetic Devices or Brace: No Transfers Transfer Destination Bedside Commode Transfer Technique Stand Step Pivot Transfer Ability Level of Assist Minimal Assistance 1 Person Assistance Use of Upper Extremities Comments Mobility Comments pt completed sit to stand from EOB CGA and was able to transfer to bedside commode min A using FWW. BP: supine: 96/62 BP after transfers: 110/65 Gait Assessment Gait Gait Assistance Required: Minimum Assistance Distance (Feet) 12 Able to Maintain Weight Bearing Status Yes During Gait Assistive Devices Assistive Device Gait Belt Front Wheeled Walker Orthotic/Prosthetic Devices or Brace: No Gait Deviations General Gait Pattern Antalgic Decreased Stride Length Decreased Feet Clearance Factors Limiting Gait Function Factors Limiting Gait Function Decreased Activity Tolerance Decreased Strength Limited Range of Motion Pain Poor Balance Poor Safety Awareness Comments Gait Comments BP after ambulation: 109/62 PT-Balance Assessment Sitting Balance and Reactions Static Sitting Balance Ability Good Dynamic Sitting Balance Ability Good Standing Balance and Reactions Static Standing Balance Ability Fair Dynamic Standing Balance Ability Fair Device Used FWW M5 PT-IP Objective Assessments Start: 07/28/18 16:54 Freq: NEEDED Status: Active Protocol: Document 07/28/18 14:50 AB (Rec: 07/28/18 17:47 AB [id number]) Orientation Orientation/Cognition Level of Alertness Alert Orientation Name Situation Safety Awareness Decreased Safety Awareness Memory Description Short Term Impaired Gross Range of Motion Lower Extremity ROM Assessment Within Functional Limits Strength Lower Extremity Strength Assessment Right Impaired Knee 4-/5 Coordination Assessment Gross Coordination Gross Coordination WNL Sensation Assessment Sensation Gross Sensation WNL Muscle Tone Muscle Tone WNL Yes M6 PT-IP Treatment Start: 07/28/18 16:54 Freq: NEEDED Status: Active Protocol: Document 07/28/18 14:50 AB (Rec: 07/28/18 17:47 AB [id number]) Physical Therapy Treatment Exercises Exercises Heel Slides Education Education Provided Precautions Weight Bearing Status Post-Op Packet Safety M7 PT-IP Assessment and Plan Start: 07/28/18 16:54 Freq: NEEDED Status: Active Protocol: Document 07/28/18 14:50 AB (Rec: 07/28/18 17:47 AB [id number]) PT Summary Assessment and Plan Potential Rehabilitation Potential Good Status of Condition at Evaluation Stable Summary Impairments Pain ROM Strength Balance Bed Mobility Transfers Gait Activity Tolerance Assessment Summary pt requiring one person assist with mobility. pt plans to go home with spouse to assist her. will conduct caregiver training when appropriate as well as complete stair climbing training prior to d/ c. Goals Bed Mobility Goal Independent Transfer Goal Independent Front Wheeled Walker Gait Goal Standby Assistance Front Wheel Walker Gait Distance 150 Other Goals up/down 3 platform steps using FWW Days to Meet Goals 5 Frequency of Treatment Frequency Of Treatment Twice a Day Treatment Plan Physical Therapy Treatment Plan Bed Mobility Training Transfer Training Gait Training Therapeutic Exercise Balance Retraining Post Op Education Discharge Planning Hot or Cold Pack Neuromuscular Re-ed Coordination Retraining Manual Therapy Other Recommendations and Next Treatment ambulation, caregiver training Focus , stair climbing training Recommendations To Nursing Amount of Assist Needed 1 Person Assist Discharge Recommendations PT Discharge Recommendations Home with Assistance Outpatient PT
--- NOTE | 2018-07-28 15:06 | CM.DPNOTE ---
Patient is a 78 year old female who was admitted today 07/28/18 for planned Total Knee Arthro. Pt has [employer] and [facility] A for insurance and her PCP is Dr. Quintana. EMR was reviewed. Per Ortho MD, pt tolerated procedure well and transferred up to the floor early afternoon. SW unable to complete bedside assessment due to triage needs and pt's drowsiness. Plan: SW to follow tomorrow for bedside assessment after PT/OT eval to determine d/c planning needs. SRAVANTHI Strong
--- NOTE | 2018-07-28 17:34 | PC.NURSE ---
Pt A/O x3, 96%RA, LS clear denies SOB. BSC to void and small hard formed BM, bowel protocol in place. Right knee aquacell/alicia wrap CDI, CMS++PP+, cap refill < 2 sec. calf SCD's on. HV site above drsg, CDI. Up to chair for dinner, 1PA FWW. BT+, denies nausea. L wrist LR @ 125 + ABO. Denies pain at this time. Call light in reach.
[2018-07-28] MEDS: ASPIRIN EC 81 MG TABLET PO (20:07)
[2018-07-29 03:00] VITALS: BP 118/69; PULSE 71; RESP 16; TEMP 36.6; O2SAT 94
[2018-07-29] MEDS: HYDROCODONE/ACET 5/325 TABLET 1 TAB PO ×2 (03:00→07:47)
[2018-07-29] MEDS: LEVOTHYROXINE 88 MCG TABLET PO (06:08)
[2018-07-29 06:14] LABS: Hematocrit 33.6 % (36-46); Hemoglobin 11.3 g/dL (12.0-16.0)
[2018-07-29 07:55] VITALS: PULSE 66; RESP 16; O2SAT 94
[2018-07-29 08:00] VITALS: BP 119/42; PULSE 62; RESP 16; TEMP 36.4; O2SAT 98
[2018-07-29] MEDS: ACETAMINOPHEN 325 MG TABLET 975 MG PO (08:21)
[2018-07-29] MEDS: ASPIRIN EC 81 MG TABLET PO (08:22)
[2018-07-29] MEDS: DOCUSATE 100 MG CAPSULE PO (08:23)
[2018-07-29] MEDS: CYANOCOBALAMIN (VITAMIN B-12) 500 MCG TABLET 1000 MCG PO (08:31)
[2018-07-29] MEDS: CHOLECALCIFEROL (VITAMIN D3) 1,000 UNIT TABLET 6000 UNIT PO (08:31)
[2018-07-29] MEDS: MAGNESIUM OXIDE 400 MG TABLET 200 MG PO (08:31)
--- NOTE | 2018-07-29 09:02 | CM.IDA ---
Initial DCP Assessment Note: Pt is a 78 yo female, resident of [place], now POD#1 from rt knee surgery. PCP: Joslyn GUERRA, TORRI Payer: Jose Maria/JEN A Reviewed chart, pt discussed in multidisciplinary rounds tis morning. Therapy has cleared pt for return home w/family to assist and pt has planned for home, DC order from Ortho PA has already been initiated this morning. No needs expected from DC planning team although will remain available in case this changes today. SRAVANTHI Wade Discharge Planning/Care Management CM Discharge Assessment Start: 07/29/18 08:54 Freq: Status: Active Protocol: Document 07/29/18 09:00 ANA (Rec: 07/29/18 09:02 ANA [id number]) Discharge Planning Assessment Assigned Catcher Filter Tip SRAVANTHI Smith DPOA/Assigned Designee Name Julianna Rider Contact Information [phone] Advance Directives? Yes: Health care directive Advance Directives on File No History Provided By Medical Record Prior Living Arrangements House Household Members spouse Type of transporation used prior to Drives own vehicle admit Independent with ADL's Yes Is patient alert and oriented? Yes Barriers to Discharge No Discharge Plan Home Transportation Arrangement Family Referrals Initiated None needed Review Status In Process
--- NOTE | 2018-07-29 09:28 | P.DS_ITS ---
History of Present Illness Date Patient Seen: 07/29/18 Time Patient Seen: 09:28 Chief complaint: 13677 Total Knee Arthroplasty Narrative: The patient has had progressively worsening right knee pain with radiographic changes consistent with arthritis. Non-operative management has failed and the patient has requested total knee replacement. The risks, benefits and alternatives to surgery were discussed with the patient prior to proceeding. Risks discussed included, but were not limited to, failure to relieve pain, stiffness, infection, nerve damage, deep venous thrombosis, pulmonary embolism, stroke, coma, heart attack, permanent paralysis and , as well as the potential need for eventual revision of the prosthetic. Discharge Providers Date of admission: 07/28/18 06:37 Discharge Date: 07/29/18 Consults: 07/28/18 06:34 Consult to Anesthesiology Routine Comment: Consulting Provider: Anesthesiologist Reason for consultation: Regional block for post operative pain control Has provider been notified: Yes 07/28/18 11:38 Consult to Discharge Planning Routine Comment: Consult to Physical Therapy Evaluate & Treat Comment: Physician Instructions: postop TKA protocol Consult to Respiratory Therapy Evaluate & Treat Comment: Physician Instructions: Evaluate and treat Discharge provider: Octavia Birmingham PA-C Summary Discharge Diagnosis: s/p total knee arthroplasty Hospital Course: Maryse was admitted for right total knee arthroplasty with Dr. Sheikh. Hospital course was unremarkable. POD #1 she was doing well and ready t o discharge home. She had worked with physical therapy and has outpatient PT scheduled. She is eating and voiding without difficulty or assistance. She has her home medications. She has ASA for DVT prophylaxis. Exam Vital Signs (past 8 hours): - 07/29/18 03:00 07/29/18 07:55 07/29/18 08:00 Temperature 97.8 F 97.6 F Pulse Rate 71 66 62 Respiratory Rate 16 16 16 Blood Pressure 118/69 119/42 L Pulse Oximetry 94 94 98 Fraction of Inspired Oxygen 21 Oxygen Delivery Method Room Air Oxygen Flow Rate 0 Narrative Exam Narrative: Patient lying in bed in no acute distress.he is alert and oriented x3. Dressing on right knee is CDI. Calves are soft, compressible, nontender bilaterally. Pulses are symmetrical. She is able to actively dorsiflex and plantar flex. Patient's pain is well controlled. No complaints this morning. Objective Labs Result Diagrams: 07/29/18 06:05 Labs: Laboratory Results - last 24 hr 07/29/18 06:05 Hgb 11.3 L Hct 33.6 L Discharge Plan Discharge Plan Patient Disposition: Home Discharge Med Rec/Prescriptions Prescriptions: New acetaminophen 325 mg Tablet 975 mg PO TID Qty: 60 RF: 0 aspirin 81 mg Tablet,Delayed Release (Dr/Ec) 81 mg PO BID Qty: 60 RF: 0 docusate sodium [DOK] 100 mg Capsule 100 mg PO BID Qty: 60 RF: 0 Continued cyanocobalamin (vitamin B-12) [Vitamin B-12] 1,000 mcg Tablet 1,000 mcg PO DAILY RF: 0 magnesium 250 mg Tablet 250 mg PO DAILY RF: 0 krill oil 500 mg Capsule 500 mg PO DAILY RF: 0 turmeric 400 mg Capsule 400 mg PO DAILY RF: 0 levothyroxine 88 mcg Capsule 88 mcg PO DAILY RF: 0 Davey-E 400 mg Tablet 400 mg PO DAILY RF: 0 cholecalciferol (vitamin D3) [Vitamin D3] 2,000 unit Tablet 6,000 unit PO DAILY RF: 0 Follow up/Referrals: Jill Sheikh MD [Physician] - Provider Discharge Instructions Cold/Heat Therapy: as needed Skin/Wound/Dressing Care Report to your healthcare provider any signs of infection, such as:: chills, fever and increased pain Dressing: leave in place Discharge Data Attending Provider: Jill Sheikh Admit Date/Time: 07/28/18 06:37 Quality VTE Deep Vein Thrombosis/Pulmonary Embolism Present on Admission: No
--- NOTE | 2018-07-29 09:54 | PT.IPTN ---
Current Diagnoses Unilateral primary osteoarthritis, right knee (07/28/18) Surgery Performed Operation Date: 07/28/18 07:45 Actual Procedures p Total Knee Arthroplasty(Right) - Jill Sheikh MD Physical Therapy Treatment Note M2 PT-IP Current Condition Start: 07/28/18 16:54 Freq: NEEDED Status: Active Protocol: Document 07/28/18 14:50 AB (Rec: 07/28/18 17:47 AB [id number]) Physical Therapy Current Condition Current Condition Evaluation Date 07/28/18 Treatment Diagnosis s/p R TKA; difficulty in walking Onset Date 07/28/18 Weight Bearing Status Weight Bearing Status Weight Bear as Tolerated M3 PT-IP Subjective Start: 07/28/18 16:54 Freq: NEEDED Status: Active Protocol: Document 07/29/18 09:44 SA (Rec: 07/29/18 09:53 SA [id number]) Subjective Physical Therapy Visit Type Type Treatment Note Visit Start Time 08:45 Visit Stop Time 09:15 Total Visit Minutes 30 Number of HEAD MILLER Visits 1 Physical Therapy Visit Comments Patient Comments Pt up in chair and agreeable to PT this AM. Patient Goals To d/c home today. Therapy Pain Assessment Pain When Pain Assessed During Mobility Pain Present Pain Present Pain Reported Location Right Knee Intensity 4 Scale Used Numeric (1 - 10) Pain Management Techniques Apply Cold Re-positioning Timing of Activity with Medications M4 PT-IP Mobility and Gait Start: 07/28/18 16:54 Freq: NEEDED Status: Active Protocol: Document 07/29/18 09:44 SA (Rec: 07/29/18 09:53 SA [id number]) PT-Bed Mobility Assessment Rolling Type of Rolling Roll to Left Level of Assist Standby Assistance Supine to Sit Supine to Sit Standby Assistance Sit to Supine Sit to Supine Standby Assistance Scooting Scooting to Edge of Bed Standby Assistance Scooting Up and Down in Bed Standby Assistance PT-Transfer Assessment Sit to and From Stand Sit to and from Stand Standby Assistance Contact Guard Assistance 1 Person Assistance Equipment Transfer Assistive Device Gait Belt Front Wheeled Walker Orthotic/Prosthetic Devices or Brace: No Transfers Transfer Destination Bed Chair Toilet Transfer Technique Stand Step Pivot Transfer Ability Level of Assist Standby Assistance Use of Upper Extremities Comments Mobility Comments Pt able to clear LEs over EOB with SBA, is SBA with transfers and uses FWW safely. BP was 109/60 with mobility. Gait Assessment Gait Gait Assistance Required: Standby Assistance Contact Guard Assist 1 Person Assist Distance (Feet) 100 Able to Maintain Weight Bearing Status Yes During Gait Assistive Devices Assistive Device Gait Belt Front Wheeled Walker Orthotic/Prosthetic Devices or Brace: No Gait Deviations General Gait Pattern Antalgic Decreased Stride Length Decreased Feet Clearance Factors Limiting Gait Function Factors Limiting Gait Function Decreased Activity Tolerance Decreased Strength Limited Range of Motion Pain Poor Balance Poor Safety Awareness Comments Gait Comments Gait training in beckman with SBA -CGA improved gait quality and able to decrease WBing through UEs and increase LLE step length and RLE WBing. Stair Climbing Assessment Evaluation Level of Assist On Stairs Contact Guard Assistance Devices Stair Climbing Assistive Devices Front Wheel Walker Left Railing Right Railing Technique/Endurance Stair Climbing Direction Ascend and Descend Stair Climbing Technique Step to Step Number of Steps Climbed 5 Query Text: Stair Climbing Set # Repetitions (reps) 1 Comments Stair Climbing Comments Pt able to climb 3 steps with B rails and step to gait pattern, CGA. Also able to manage FWW on platform step with CGA and min cues, completed 2x safely. PT-Balance Assessment Sitting Balance and Reactions Static Sitting Balance Ability Good Dynamic Sitting Balance Ability Good M5 PT-IP Objective Assessments Start: 07/28/18 16:54 Freq: NEEDED Status: Active Protocol: Document 07/28/18 14:50 AB (Rec: 07/28/18 17:47 AB [id number]) Orientation Orientation/Cognition Level of Alertness Alert Orientation Name Situation Safety Awareness Decreased Safety Awareness Memory Description Short Term Impaired Gross Range of Motion Lower Extremity ROM Assessment Within Functional Limits Strength Lower Extremity Strength Assessment Right Impaired Knee 4-/5 Coordination Assessment Gross Coordination Gross Coordination WNL Sensation Assessment Sensation Gross Sensation WNL Muscle Tone Muscle Tone WNL Yes M6 PT-IP Treatment Start: 07/28/18 16:54 Freq: NEEDED Status: Active Protocol: Document 07/29/18 09:44 SA (Rec: 07/29/18 09:53 SA [id number]) Physical Therapy Treatment Exercises Exercises Ankle Pumps Gluteal Sets Quad Sets Seated Knee Flexion/Extension Education Education Provided Precautions Weight Bearing Status Post-Op Packet Safety M7 PT-IP Assessment and Plan Start: 07/28/18 16:54 Freq: NEEDED Status: Active Protocol: Document 07/29/18 09:44 SA (Rec: 07/29/18 09:53 [id number]) PT Summary Assessment and Plan Potential Rehabilitation Potential Good Status of Condition at Evaluation Stable Summary Impairments Pain ROM Strength Balance Bed Mobility Transfers Gait Activity Tolerance Assessment Summary Pt progressing well with functional mobility and gait, manages stairs safely and SBA with bed mobility and txs. Has help at home and OP PT, anticipate d/c home today. Frequency of Treatment Frequency Of Treatment Twice a Day Treatment Plan Physical Therapy Treatment Plan Bed Mobility Training Transfer Training Gait Training Therapeutic Exercise Balance Retraining Post Op Education Discharge Planning Hot or Cold Pack Neuromuscular Re-ed Coordination Retraining Manual Therapy Recommendations To Nursing Amount of Assist Needed 1 Person Assist Discharge Recommendations PT Discharge Recommendations Home with Assistance Outpatient PT
--- NOTE | 2018-07-29 10:17 | PC.NURSE ---
07/29/18 0800, discharged hemovac, folded 4x4 applied and secured, patient tolerated well.
== END 2018-07-29 10:54 | disposition home or self-care (01) | DRG 470 ==
PROVIDERS: Admitting Provider Orthopaedic Surgery; Visit Provider Orthopaedic Surgery
PROC: 0SRC0JZ Replacement of Right Knee Joint with Synthetic Substitute, Open Approach (ICD-10-PCS; CPT 27447; principal; 2018-07-28 07:45)
DX: M17.11 Unilateral primary osteoarthritis, right knee (principal); E03.9 Hypothyroidism, unspecified; Z96.652 Presence of left artificial knee joint
CPT/HCPCS: 36415; 73560; 85014; 85018; 94762; 97116; 97161; 97530; C1776; C9290; J0690; J1100; J2250; J2274; J2405; J2704; J3010; J3370